=== PATIENT | male | born 1970 | race Caucasian/White ===

== ENCOUNTER 2018-04-27 06:08 | Emergency (ER) | payer MEDICAID ==
[~2018-04-27] VITALS: Wt 96.2 kg
[2018-04-27 06:11] VITALS: Wt 96.2 kg
[2018-04-27] MEDS ORDERED: SODIUM CHLORIDE 0.9% 1L BAG IV* STA (06:39)
[2018-04-27] MEDS ORDERED: CEFTRIAXONE 1 GM/50 ML (PMX) 50 ML IVPB STA (06:39)
[2018-04-27] MEDS ORDERED: AZITHROMYCIN 500MG/NS (PMX) 250 ML IV STA (06:39)
[2018-04-27] MEDS ORDERED: KETOROLAC 15 MG INJ IV STA (06:42)
--- NOTE | 2018-04-27 06:53 | ERD ---
ER Documentation Chief Complaint Chief Complaint SOB; HX OF BRONCHITIS HPI 48-year-old male with no significant prior medical history ambulatory to the ED complaining of fever, cough, shortness of breath and body aches. Patient was in his usual state of health until 6 days ago when he developed body aches, nonproductive cough and mild shortness of breath. He went to the clinic was given a breathing treatment started on methylprednisolone and promethazine with codeine cough syrup. Yesterday he began to feel worse with fevers, worsening shortness of breath and cough. He went back to the clinic, diagnosed with pneumonia and treated with Augmentin and prednisone but feels worse today. Also complaining of moderate, achy, right-sided chest pain exacerbated by coughing that radiates to the back. Denies headache, neck or back pain. No abdominal pain, nausea, vomiting, diarrhea or constipation. No skin rash. ROS All systems reviewed and are negative except as per history of present illness. Medications Home Meds Active Scripts Ibuprofen* (Motrin*) 600 Mg Tab, 600 MG PO Q6 PRN for FEVER, #30 TAB Prov:BOBBY BOBBY MD 04/27/18 Albuterol Sulfate* (Ventolin HFA*) 18 Gm Hfa.aer.ad, 2 PUFF INHALATION Q4H, #1 INHALER Prov:BOBBY BOBBY MD 04/27/18 Allergies Allergies: Coded Allergies: No Known Allergy (Unverified , 04/27/18) PMhx/Soc History of Surgery: No Anesthesia Reaction: No Hx Neurological Disorder: No Hx Respiratory Disorders: No Hx Cardiac Disorders: No Hx Psychiatric Problems: No Hx Miscellaneous Medical Probl: No Hx Alcohol Use: No Hx Substance Use: No Hx Tobacco Use: No FmHx No stroke or cancer Physical Exam Vitals Vital Signs Date Temp Pulse Resp B/P (MAP) Pulse Ox O2 O2 Flow FiO2 Time Delivery Rate 04/27/18 100.0 81 18 118/70 100 Room Air 14:48 (86) 04/27/18 101.9 14:09 04/27/18 101.9 80 18 100 Room Air 13:30 04/27/18 98.1 89 21 122/73 99 Room Air 11:25 (89) 04/27/18 80 20 119/76 99 Room Air 10:53 (90) 04/27/18 98.2 98 20 120/72 99 Room Air 09:11 (88) 04/27/18 95 20 99 21 07:29 04/27/18 101.0 07:08 04/27/18 102.6 112 20 143/87 98 06:11 (105) Physical Exam Const: Moderate distress. Head: Atraumatic Eyes: Normal Conjunctiva ENT: Normal External Ears, Nose and Mouth. Pharynx is clear without erythema or exudate. Mucous membranes are moist. Neck: Full range of motion. No meningismus. Resp: Breath sounds diminished bilaterally Cardio: Tachycardic. Regular rate and rhythm, no murmurs Abd: Soft, non tender, non distended. Normal bowel sounds Skin: No petechiae or rashes Back: No midline or flank tenderness Ext: No cyanosis, or edema Neur: Awake and alert. No focal deficit. Psych: Anxious but not depressed. Result Diagram: 04/27/18 0630 04/27/18 0639 Results 24 hrs Laboratory Tests Test 04/27/18 06:30 04/27/18 06:39 04/27/18 07:00 04/27/18 07:15 White Blood 10.4 10^3/ul Count Red Blood Count 5.32 10^6/ul Hemoglobin 16.3 g/dl Hematocrit 46.3 % Mean Corpuscular 87.0 fl Volume Mean Corpuscular 30.6 pg Hemoglobin Mean Corpuscular 35.2 g/dl Hemoglobin Funmi nt Red Cell 13.2 % Distribution Width Platelet Count 314 10^3/UL Mean Platelet 9.6 fl Volume Immature 0.900 % Granulocytes % Neutrophils % 65.0 % Lymphocytes % 20.3 % Monocytes % 12.4 % Eosinophils % 0.9 % Basophils % 0.5 % Nucleated Red 0.0 /100WBC Blood Cells % Immature 0.090 10^3/ul Granulocytes # Neutrophils # 6.8 10^3/ul Lymphocytes # 2.1 10^3/ul Monocytes # 1.3 10^3/ul Eosinophils # 0.1 10^3/ul Basophils # 0.1 10^3/ul Nucleated Red 0.0 10^3/ul Blood Cells # Sodium Level 138 mmol/L Potassium Level 3.8 mmol/L Chloride Level 104 mmol/L Carbon Dioxide 17 mmol/L Level Anion Gap 17 Blood Urea 10 mg/dl Nitrogen Creatinine 0.68 mg/dl Est Glomerular > 60 mL/min Filtrat Rate mL/min Glucose Level 159 mg/dl Calcium Level 9.6 mg/dl Total Bilirubin 0.6 mg/dl Direct Bilirubin 0.00 mg/dl Indirect 0.6 mg/dl Bilirubin Aspartate Amino 38 IU/L Transf (AST/SGOT ) Alanine 50 IU/L Aminotransferase (ALT/SGPT) Alkaline 110 IU/L Phosphatase Troponin I < 0.012 ng/ml Total Protein 7.9 g/dl Albumin 4.7 g/dl Globulin 3.20 g/dl Albumin/Globulin 1.46 Ratio Lactic Acid 3.0 mmol/L Level Urine Color YELLOW Urine Clarity CLEAR Urine pH 5.0 Urine Specific 1.013 [place] Urine Ketones NEGATIVE mg/dL Urine Nitrite NEGATIVE mg/dL Urine Bilirubin NEGATIVE mg/dL Urine NEGATIVE mg/dL Urobilinogen Urine Leukocyte NEGATIVE Zafar/ul Esterase Urine 2 /HPF Microscopic RBC Urine 1 /HPF Microscopic WBC Urine Mucus FEW /HPF Urine Hemoglobin 1+ mg/dL Urine Glucose NEGATIVE mg/dL Urine Total 1+ mg/dl Protein Test 04/27/18 09:30 04/27/18 11:20 Lactic Acid 2.4 mmol/L 2.6 mmol/L Level Current Medications Medications Dose Sig/Ferdinand Start Time Status Last (Trade) Ordered Route PRN Stop Time Admin Dose Reason Admin Sodium 2,890 ml BOLUS OVER 2 04/27/18 DC 04/27/18 Chloride HOURS STAT 06:39 07:07 (NS) IV* 04/27/18 06:41 Ceftriaxone 50 ml @ ONCE STAT 04/27/18 DC 04/27/18 Sodium 100 mls/hr IVPB 06:39 07:07 04/27/18 07:08 Azithromycin 250 ml @ ONCE STAT 04/27/18 DC 04/27/18 250 mls/hr IV 06:39 07:53 04/27/18 07:38 Ketorolac 15 mg ONCE STAT 04/27/18 DC 04/27/18 Tromethamine IV 06:42 07:08 (Toradol) 04/27/18 06:43 650 mg ONCE ONCE 04/27/18 DC 04/27/18 Acetaminophen PO 07:00 07:08 (Tylenol 04/27/18 07:01 Tab) Albuterol 10 mg ONCE STAT 04/27/18 DC 04/27/18 (Proventil INH 07:05 07:26 0.5% (Neb)) 04/27/18 07:07 650 mg ONCE STAT 04/27/18 DC 04/27/18 Acetaminophen PO 13:55 14:09 (Tylenol 04/27/18 13:58 Tab) Procedures/MDM DOCUMENTS REVIEWED: ED nurse, no prior records EKG: Time: 07:38. Sinus rhythm. Ventricular rate 96. No ectopy. Normal TN/QRS. No acute ST-T wave changes. Border prolonged QTC of 482 ms. My Interpretation IMAGING: PROCEDURE: Single view chest. CLINICAL INDICATION: Possible sepsis TECHNIQUE: Single view of the chest was obtained COMPARISON: None FINDINGS: There is no airspace consolidation or focal infiltrate. No pleural effusion or pneumothorax. Cardiac silhouette and mediastinal contours are unremarkable. Pulmonary vasculature appears normal. Regional bones are grossly unremarkable. IMPRESSION: No evidence of active cardiopulmonary disease. RPTAT: [facility] Physician Joss Date Time Electronically viewed and signed by Physician Joss on 04/27/2018 07:41 xB/ Observation Note: Time: 6 hours Family Hx: No Hypertension Evaluation: Multiple exams showed improving symptoms and no evidence of an occult bacterial infection [employer]-year-old male with no significant prior medical history ambulatory to the ED complaining of fever, cough, shortness of breath and body aches. CBC negative for leukocytosis or anemia. Chemistry reveals no evidence of renal insufficiency or electrolyte abnormalities. Urinalysis is negative for infection. Chest x-ray negative for pneumonia or congestive heart failure. Influenza A/B is negative. Patient presents with multiple criteria for systemic inflammatory response syndrome. Lactate was elevated. Normal saline 30 cc/kg fluid bolus and broad-spectrum antibiotics administered after cultures. Fever resolved with antipyretics. Bronchospasm treated with nebulized beta agonists. Patient presents with fever and nonspecific syndrome consistent with viral illness. Lactates are elevated likely due to respiratory insufficiency. No evidence of end organ disease or acute bacterial infection. Patient was observed in the ED for over 6 hours. In the absence of signs of serious, acute illness patient is stable for discharge with symptomatic care, precautionary instructions and outpatient follow-up as counseled. Counseled patient regarding diagnosis, diagnostic results and plan for discharge and outpatient follow-up. Departure Diagnosis: Primary Impression: Fever Fever type: unspecified Qualified Codes: R50.9 - Fever, unspecified Additional Impressions: Cough SIRS (systemic inflammatory response syndrome) Nonspecific syndrome suggestive of viral illness Bronchitis Condition: Stable BOBBY BOBBY MD Apr 27, 2018 06:53
[2018-04-27] MEDS ORDERED: ACETAMINOPHEN 325 MG TAB PO ONE (07:00)
[2018-04-27] MEDS ORDERED: ALBUTEROL 0.5% (NEB) 2.5 MG/0.5 ML AMP INH STA (07:05)
[2018-04-27] MEDS ORDERED: ACETAMINOPHEN 325 MG TAB PO STA (13:55)
[2018-04-27] MEDS ORDERED: ALBU18HF INHALATION (14:15)
[2018-04-27] MEDS ORDERED: IBUP-1542 PO (14:15)
[2018-04-27 14:48] VITALS: BP 118/70; PULSE 81; RESP 18
== END 2018-04-27 14:52 | disposition home or self-care (01) ==
LOC: E/R 06:08
DX: B34.9 Viral infection, unspecified (principal); R65.10 Systemic inflammatory response syndrome (SIRS) of non-infectious origin without acute organ dysfunction; J40 Bronchitis, not specified as acute or chronic; R50.9 Fever, unspecified
CPT/HCPCS: 36415; 71045; 80053; 81001; 83605; 84484; 85025; 87040; 87086; 87400; 93005; 94644; 96365; 96366; 96368; 96375; J0456; J0696; J1885; J7030; Z7502; Z7610